=== PATIENT | female | born 1985 | race African-American/Black ===

== ENCOUNTER 2025-01-18 15:03 | Emergency (ER) | payer OTHER ==
[~2025-01-18] VITALS: Ht 165.1 cm; Wt 82.0 kg
[2025-01-18 15:04] VITALS: TEMP 37.1; O2SAT 97
[2025-01-18 17:18] VITALS: BP 121/86; PULSE 98; RESP 14; O2SAT 100
== END 2025-01-18 17:22 ==
LOC: ER 15:03
DX: S02.2XXA Fracture of nasal bones, initial encounter for closed fracture (principal); S09.90XA Unspecified injury of head, initial encounter; F31.9 Bipolar disorder, unspecified; Y08.89XA Assault by other specified means, initial encounter; Y93.89 Activity, other specified; Y92.89 Other specified places as the place of occurrence of the external cause; Y99.8 Other external cause status
CPT/HCPCS: 70486; 81025; 99284

== ENCOUNTER 2025-02-25 19:26 | Emergency (ER) | payer OTHER ==
[~2025-02-25] VITALS: Ht 170.2 cm; Wt 98.0 kg
[2025-02-25 19:29] VITALS: BP 100/63; PULSE 72; RESP 16; TEMP 36.8
[2025-02-25] MEDS ORDERED: LIDOCAINE HCL 1% 20ML VIAL INFIL ONE (20:30)
== END 2025-02-25 20:59 | disposition home or self-care (01) ==
LOC: ER 19:26
DX: S61.512A Laceration without foreign body of left wrist, initial encounter (principal); F31.9 Bipolar disorder, unspecified; W26.0XXA Contact with knife, initial encounter; Y93.89 Activity, other specified; Y92.89 Other specified places as the place of occurrence of the external cause; Y99.8 Other external cause status
CPT/HCPCS: 12001; 99283; Z7610